=== PATIENT | female | born 2000 | race Caucasian/White ===

== ENCOUNTER → 2021-12-23 | Outpatient (CLI) | payer BC ==
--- NOTE | 2021-12-23 18:59 | Diagnostic Imaging Report ---
Ultrasound right breast, limited. Indication: Right breast mass By history the patient has a palpable abnormality in the upper medial aspect of the right breast. According to the patient she underwent open biopsy in [place], [place] in 2019 in this same region. The results of the biopsy are not known to me but the patient stated that there was no significant abnormality identified. The patient's previous ultrasound examination of this area is also unavailable as there is a report from that study. If the 2019 ultrasound exam itself or the report of that exam can be made available for comparison, it would be helpful. On this study there is no discrete solid or cystic mass in the area of concern. Clinical followup is recommended. Impression: 1. There is no abnormality to correspond to patient's palpable area in the upper-inner quadrant of the right breast. Clinical followup is recommended. 2. If the previous exam/report is available for comparison, it would be helpful. ACR BI-RADS Category 1: Negative. Result letter will be mailed to the patient. Note: At least 10% of breast cancer is not imaged by mammography. Dictated by: Dictated on workstation # [id number]
== END ==
LOC: RAD 13:49
PROVIDERS: ATTEND Family Medicine
DX: N63.10 Unspecified lump in the right breast, unspecified quadrant (principal)
CPT/HCPCS: 76641